=== PATIENT | female | born 1995 | race Caucasian/White ===

== ENCOUNTER 2018-11-21 05:47 | Day surgery (SDC) | payer BC ==
[~2018-11-21] VITALS: Ht 160 cm; Wt 59.6 kg
[2018-11-21 07:06] VITALS: Ht 160 cm; Wt 59.6 kg
[2018-11-21] MEDS ORDERED: no home meds (07:12)
[2018-11-21 07:21] VITALS: BP 125/72; PULSE 76; RESP 18
[2018-11-21] MEDS ORDERED: MIDAZOLAM 1 MG/ML 2 ML INJ ONE ×2 (08:17)
[2018-11-21] MEDS ORDERED: FENTAnyl 50 MCG/ML VIAL ONE (08:17)
[2018-11-21 08:39] VITALS: BP 106/59; PULSE 66; RESP 20
[2018-11-21] MEDS ORDERED: ONDANSETRON 4 MG TAB PO ONE (09:30)
== END 2018-11-21 11:07 | disposition home or self-care (01) ==
LOC: GIL 05:47
PROVIDERS: ATTEND Internal Medicine Gastroenterology
DX: K44.9 Diaphragmatic hernia without obstruction or gangrene (principal); K21.9 Gastro-esophageal reflux disease without esophagitis
CPT/HCPCS: 43239; 84703; 88305; J2250; J3010; Z7610